=== PATIENT | male | born 1980 | race Caucasian/White ===

== ENCOUNTER → 2018-01-25 12:59 | Outpatient (CLI) | payer OTHER, SELFPAY ==
--- NOTE | 2018-01-25 | DI.RAD.S_ITS ---
PROCEDURE: XR CHEST 2V INDICATIONS: THORACIC CONTUSION, LUMBAR STRAIN, LT RIB FRACTURE TECHNIQUE: 2 views of the chest were acquired. COMPARISON: None. FINDINGS: Surgical changes and devices: None. Lungs and pleura: No pleural effusions or pneumothorax. Lungs are clear. Mediastinum: Mediastinal contours are normal. Heart size is normal. Bones and chest wall: Multiple old left rib fractures are present. Soft tissues appear unremarkable. IMPRESSION: No acute cardiopulmonary disease. Dictated by: Desmond Daniel M.D. on 01/25/2018 at 14:08 Approved by: Desmond Daniel M.D. on 01/25/2018 at 14:09
== END ==
PROVIDERS: Visit Provider Physical Medicine & Rehabilitation
DX: S20.212A Contusion of left front wall of thorax, initial encounter (principal); S39.012A Strain of muscle, fascia and tendon of lower back, initial encounter; S22.42XA Multiple fractures of ribs, left side, initial encounter for closed fracture
CPT/HCPCS: 71046

== ENCOUNTER → 2018-03-14 16:13 | Outpatient (CLI) | payer OTHER, SELFPAY ==
--- NOTE | 2018-03-14 16:16 | DI.MRI.S_ITS ---
PROCEDURE: MR THORACIC SPINE WO CON INDICATIONS: LEFT RIB FRACTURE/CONTUSION THORAX. Thoracic spine pain. Attacked by a cow. TECHNIQUE: Noncontrast sagittal T1 spine echo and T2 fast spin echo, sagittal STIR, axial T1 and T2 fast spin echo through the thoracic spine. COMPARISON: [facility], CR, XR CHEST 2V, 01/25/2018, 12:45. FINDINGS: Image quality: Excellent. Alignment and Curvature: There is normal bony alignment. Bone Marrow: Marrow is of normal overall signal except at T8 where there is a mild vertebral body compression fracture involving the upper endplate, with elevated fluid signal in the marrow space on the T1 and STIR pulse sequence, without retropulsion of bone fragments into the spinal canal. Alignment is normal in this area. There is a 2% height reduction at the middle third of the T8 vertebral body when compared to the vertebral body with normal signal immediately above.. No acute vertebral body compression fractures. Elsewhere there is a small degree of chronic appearing degenerative disc height reduction and disc desiccation noted along the upper and middle thirds of the thoracic spine. Spinal Cord: Visualized spinal cord is normal in size and signal. Paraspinous Soft Tissues: No paravertebral masses. Miscellaneous: On axial images, central canal and foramina appear widely patent at all scanned levels. IMPRESSION: 1. There is evidence of acute or subacute traumatic injury to the middle third of the thoracic spine. This is seen specifically at the T8 vertebral body where marrow edema is present associated with a mild depression of the upper endplate of the T8 vertebral body, without retropulsion of bone fragments after trauma into the spinal canal. This results in a very small degree of vertebral height reduction, a 2% height reduction when compared to the vertebral body immediately below where normal T9 marrow signal is present. 2. Along the thoracic spine there is no disc bulge or herniation. The intervertebral neural foramen show no sign of stenosis after trauma. No nerve root impingement is suspected. No paravertebral edema or hematoma is associated. Dictated by: Lon Jack M.D. on 03/15/2018 at 8:14 Approved by: Lon Jack M.D. on 03/15/2018 at 8:26
== END ==
PROVIDERS: Visit Provider Physical Medicine & Rehabilitation
DX: S29.9XXA Unspecified injury of thorax, initial encounter (principal); M54.6 Pain in thoracic spine; W55.22XA Struck by cow, initial encounter
CPT/HCPCS: 72146

== ENCOUNTER → 2022-07-02 14:36 | Outpatient (CLI) | payer OTHER, MEDICAID, SELFPAY ==
--- NOTE | 2022-07-02 14:38 | DI.RAD.S_ITS ---
PROCEDURE: XR THORACIC SPINE 2V INDICATIONS: thoracic pain TECHNIQUE: 2 views of the thoracic spine were acquired. COMPARISON: [facility] [place], KATIE, XR THORACIC SPINE 2 VIEWS, 05/05/2018, 14:15. FINDINGS: Bones: No fractures or dislocations. No suspicious bony lesions. 12 pairs of ribs are noted, and appear intact where visualized. Multilevel minimal disc space narrowing. Soft tissues: No paravertebral stripe thickening. IMPRESSION: Multilevel minimal disc space narrowing. Dictated by: Elisabeth Baires M.D. on 07/02/2022 at 17:31 Approved by: Elisabeth Baires M.D. on 07/02/2022 at 17:31
== END ==
PROVIDERS: PCP Internal Medicine; Referring Provider Internal Medicine; Visit Provider Internal Medicine
DX: M54.6 Pain in thoracic spine (principal); M45.9 Ankylosing spondylitis of unspecified sites in spine
CPT/HCPCS: 72070

== ENCOUNTER → 2022-11-30 14:58 | Outpatient (CLI) | payer OTHER, MEDICAID, SELFPAY ==
[2022-11-30 15:56] LABS: Hematocrit 39.8 % (41-53); Hemoglobin 13.7 g/dL (13.5-17.5); Mean Corpuscular HGB Conc 34.4 % (30-36); Mean Corpuscular Hemoglobin 31.6 PG (26-34); Mean Corpuscular Volume 91.9 fL (80-100); Platelet Count 282 X10^3/uL (150-400); Red Blood Cell Count 4.33 X10^6/uL (4.5-5.9); Red Cell Distribution Width 13.1 % (11.6-14.8); White Blood Cell Count 6.9 X10^3/uL (4.5-11.0)
[2022-11-30 16:28] LABS: Alanine Aminotransferase 24 IU/L (<50); Alkaline Phosphatase 102 U/L (38-126); Aspartate Aminotransferase 21 IU/L (17-59); BUN Creatinine Ratio 17.9 (6-22); Bilirubin Total 0.4 mg/dL (0.2-1.3); Blood Urea Nitrogen 12 mg/dL (9-20); C-Reactive Protein Quant 0.8 mg/dL (<1.0); Calcium 8.5 mg/dL (8.4-10.2); Carbon Dioxide 26 mmol/L (22-32); Chloride 100 mmol/L (98-107); Estimated Glomerular Filt Rate > 60 mL/min (>60); Glucose 204 mg/dL (70-100); HEMOLYSIS < 15 (0-50); Potassium 3.9 mmol/L (3.4-5.1); Sodium 135 mmol/L (137-145)
[2022-11-30 16:29] LABS: Albumin 4.2 g/dL (3.5-5.0); Albumin Globulin Ratio 1.2 (1.0-2.8); Cholesterol 211 mg/dL (140-199); Globulin 3.4 g/dL (1.7-4.1); HDL Cholesterol 50 mg/dL (40-60); LDL Cholesterol Calculated 141 mg/dL (<100); Total Protein 7.6 g/dL (6.3-8.2); Triglycerides 99 mg/dL (35-150)
[2022-11-30 16:52] LABS: TSH w/ Reflex to FT4 1.75 uIU/mL (0.47-4.68)
[2022-11-30 16:59] LABS: Hepatitis B Surface Antigen NEGATIVE s/c (NEGATIVE)
[2022-11-30 17:22] LABS: HIV 1 & 2 Ab/Ag 4th Gen Combo NEGATIVE (NEGATIVE); Hep C Virus Ab w/Reflex Quant NEGATIVE s/c (NEGATIVE)
[2022-11-30 17:57] LABS: Urine N gonorrhoeae NOT DETECTED
[2022-11-30 18:14] LABS: Urine Chlamydia NOT DETECTED
[2022-11-30 19:04] LABS: Erythrocyte Sedimentation Rate 16 MM/HR (0-15)
[2022-12-02 06:31] LABS: Hepatitis B Surf Ab Qualitativ Non Reactive (.)
== END ==
PROVIDERS: PCP Internal Medicine; Referring Provider Internal Medicine; Visit Provider Internal Medicine
DX: M45.9 Ankylosing spondylitis of unspecified sites in spine (principal); I10 Essential (primary) hypertension; Z00.00 Encounter for general adult medical examination without abnormal findings; Z20.9 Contact with and (suspected) exposure to unspecified communicable disease
CPT/HCPCS: 36415; 80053; 80061; 84443; 85027; 85651; 86140; 86706; 86803; 87340; 87389; 87491; 87591

== ENCOUNTER → 2023-12-29 12:38 | Outpatient (CLI) | payer OTHER, MEDICAID, SELFPAY ==
[2023-12-29 13:41] LABS: Hematocrit 42.3 % (41-53); Hemoglobin 14.3 g/dL (13.5-17.5); Mean Corpuscular HGB Conc 33.9 % (30-36); Mean Corpuscular Hemoglobin 33.8 PG (26-34); Mean Corpuscular Volume 99.6 fL (80-100); Platelet Count 292 X10^3/uL (150-400); Red Blood Cell Count 4.24 X10^6/uL (4.5-5.9); Red Cell Distribution Width 12.3 % (11.6-14.8)
[2023-12-29 13:55] LABS: Erythrocyte Sedimentation Rate 13 MM/HR (0-15)
[2023-12-29 14:50] LABS: C-Reactive Protein Quant 1.2 mg/dL (<1.0)
[2023-12-29 18:14] LABS: Hemoglobin A1C% w Est Avg Glu 8.8 % (4.0-6.0)
== END ==
LOC: LAB 12:39
PROVIDERS: PCP Internal Medicine; Referring Provider Internal Medicine; Visit Provider Internal Medicine
DX: R73.01 Impaired fasting glucose (principal); M45.9 Ankylosing spondylitis of unspecified sites in spine
CPT/HCPCS: 36415; 83036; 85027; 85651; 86140

== ENCOUNTER 2024-03-29 11:27 | Emergency (ER) | payer OTHER, MEDICAID, SELFPAY ==
[2024-03-29] VITALS (9 sets, daily range): BP systolic 174–204; BP diastolic 104–130; PULSE 86–96; RESP 12–24; TEMP 36.6; O2SAT 96–100; BMI 27.3
--- NOTE | 2024-03-29 15:18 | ED.ANXIETY ---
HPI - Anxiety <Clarissa Cisneros PA-C - Last Filed: 03/29/24 19:45> General Chief Complaint: Anxiety Stated Complaint: Panic attack,Anxiety Time Seen by Provider: 03/29/24 15:17 History of Present Illness HPI narrative: Mr. Cali is a 43-year-old male with a past medical history of T2DM, PTSD, HTN, HLD who presents to the emergency department for an acute anxiety attack. Patient reports he is very stressed right now, trying to buy a house, his girlfriend broke up with him, and this morning he developed an anxiety attack. States that he has suffered with anxiety attacks in the past. Reports left upper quadrant abdominal pain over the last ?few weeks? from a history of stomach ulcers. Denies any bloody or black stools. Denies chest pain, shortness of breath, vomiting. Denies taking any anxiety medications or pain medications prior to arrival. Related Data Previous Rx's Medication Instructions Recorded escitalopram oxalate 10 mg tablet 10 mg PO DAILY #90 tabs 05/05/23 cyclobenzaprine 10 mg tablet 10 mg PO BEDTIME PRN muscle spasm 11/11/23 #30 tabs metformin 500 mg tablet 500 mg PO BID #60 tabs 12/30/23 hydrocodone 5 mg-acetaminophen 325 1 tab PO BID PRN pain #60 tabs 02/10/24 mg tablet hydrocodone 5 mg-acetaminophen 325 1 tab PO BID PRN pain #60 tabs 02/10/24 mg tablet hydrocodone 5 mg-acetaminophen 325 1 tab PO BID PRN pain #60 tabs 02/10/24 mg tablet losartan 50 mg tablet 50 mg PO DAILY #90 tabs 02/10/24 meloxicam 15 mg tablet 15 mg PO DAILY #90 tabs 02/10/24 lorazepam 1 mg tablet (Ativan) 1 mg PO BID PRN anxiety #8 tabs 03/29/24 pantoprazole 40 mg granules 40 mg PO DAILY 30 days #30 ea 03/29/24 delayed-release for susp in packet (Protonix) Allergies Allergy/AdvReac Type Severity Reaction Status Date / Time cephalexin Allergy Severe Anaphylaxis Verified 03/29/24 12:44 Review of Systems <Clarissa Cisneros PA-C - Last Filed: 03/29/24 19:45> Review of Systems ROS Unobtainable: All systems reviewed & are unremarkable except as noted in HPI and below Patient History <Clarissa Cisneros PA-C - Last Filed: 03/29/24 19:45> Medical History DM type 2 with diabetic dyslipidemia Low testosterone Acute bacterial sinusitis Chronic, continuous use of opioids Overweight PTSD (post-traumatic stress disorder) (~2016) Fractures Ankle pain (~2009) Irritable bowel syndrome (~2014) Alcohol use disorder Tobacco abuse Generalized anxiety disorder Ankylosing spondylitis (~2016) Essential hypertension (~2021) Surgical History Anesthesia History of surgery on arm History of hand surgery (~2002) Family History Father Cancer Mother Cancer 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 Overweight patient, in no mild distress. HEAD: Atraumatic. Normocephalic. EYES: Extraocular motions intact. No scleral icterus. No injection or drainage. ENT: Nose without bleeding, purulent drainage. Airway patent. NECK: Trachea midline. CARDIOVASCULAR: Tachycardic, regular rhythm. RESPIRATORY: Clear to auscultation. Breath sounds equal bilaterally. No wheezes, rales, or rhonchi. No resp distress. GASTROINTESTINAL: Abdomen soft, nondistended. LUQ tenderness, no rebound or guarding. EXTREMITIES: No edema or joint tenderness. NEURO: AOx3. MENTAL STATUS: Anxious. Engages in conversation appropriately. SKIN: No rash or erythema of visible areas Initial Vital Signs Initial Vital Signs: Vital Signs Temperature 98 F 03/29/24 12:41 Pulse Rate 96 H 03/29/24 12:41 Respiratory Rate 22 03/29/24 12:41 Blood Pressure 204/126 H 03/29/24 12:41 Pulse Oximetry 99 03/29/24 12:41 Oxygen Delivery Method Room Air 03/29/24 12:41 <Calli Hills MD - Last Filed: 04/03/24 07:12> Initial Vital Signs Initial Vital Signs: Vital Signs Temperature 98 F 03/29/24 12:41 Pulse Rate 96 H 03/29/24 12:41 Respiratory Rate 22 03/29/24 12:41 Blood Pressure 204/126 H 03/29/24 12:41 Pulse Oximetry 99 03/29/24 12:41 Oxygen Delivery Method Room Air 03/29/24 12:41 Scores <Clarissa Cisneros PA-C - Last Filed: 03/29/24 19:45> HEART Score Heart Score history: Slightly Suspicious Heart Score EKG: Normal Heart Score Age: < 45 years old Heart Score risk factors: > 3 risk factors or hx of atherosclerotic disease Heart Score troponin: < or = to normal limit Heart Score Total: 2 <Calli Hills MD - Last Filed: 04/03/24 07:12> HEART Score Heart Score Total: 2 Course <Clarissa Cisneros PA-C - Last Filed: 03/29/24 19:45> Orders Ordered: Discontinued Medications Lorazepam (Lorazepam 0.5 Mg Tablet) 1 mg PO NOW ONE Stop: 03/29/24 15:27 Last Admin: 03/29/24 15:49 Dose: 1 mg Documented By: ROBBIE Losartan Potassium (Losartan 50 Mg Tablet) 50 mg PO NOW ONE Stop: 03/29/24 17:53 Last Admin: 03/29/24 18:15 Dose: 50 mg Documented By: OWEN Pantoprazole Sodium (Pantoprazole 40 Mg Vial) 40 mg IV NOW ONE Stop: 03/29/24 17:59 Last Admin: 03/29/24 18:16 Dose: 40 mg Documented By: OWEN Vital Signs Vital signs: Vital Signs - 8 hr 03/29/24 12:41 03/29/24 14:40 03/29/24 15:11 Temperature 98 F Pulse Rate 96 H 96 H 94 H Respiratory Rate 22 24 Blood Pressure 204/126 H 182/104 H 195/111 H Pulse Oximetry 99 99 99 Oxygen Delivery Method Room Air Room Air Room Air 03/29/24 16:05 03/29/24 16:28 03/29/24 17:02 Temperature Pulse Rate 86 89 88 Respiratory Rate 18 20 12 Blood Pressure 176/130 H 186/111 H 174/119 H Pulse Oximetry 96 98 98 Oxygen Delivery Method Room Air Room Air Room Air 03/29/24 18:15 03/29/24 18:20 03/29/24 19:20 Temperature Pulse Rate 86 89 87 Respiratory Rate 18 18 Blood Pressure 181/106 H 181/106 H 181/104 H Pulse Oximetry 98 100 Oxygen Delivery Method Room Air Room Air <Calli Hills MD - Last Filed: 04/03/24 07:12> Orders Ordered: Discontinued Medications Lorazepam (Lorazepam 0.5 Mg Tablet) 1 mg PO NOW ONE Stop: 03/29/24 15:27 Last Admin: 03/29/24 15:49 Dose: 1 mg Documented By: ROBBIE Losartan Potassium (Losartan 50 Mg Tablet) 50 mg PO NOW ONE Stop: 03/29/24 17:53 Last Admin: 03/29/24 18:15 Dose: 50 mg Documented By: OWEN Pantoprazole Sodium (Pantoprazole 40 Mg Vial) 40 mg IV NOW ONE Stop: 03/29/24 17:59 Last Admin: 03/29/24 18:16 Dose: 40 mg Documented By: SB Vital Signs Vital signs: Vital Signs - 8 hr 03/29/24 12:41 03/29/24 14:40 03/29/24 15:11 Temperature 98 F Pulse Rate 96 H 96 H 94 H Respiratory Rate 22 24 Blood Pressure 204/126 H 182/104 H 195/111 H Pulse Oximetry 99 99 99 Oxygen Delivery Method Room Air Room Air Room Air 03/29/24 16:05 03/29/24 16:28 03/29/24 17:02 Temperature Pulse Rate 86 89 88 Respiratory Rate 18 20 12 Blood Pressure 176/130 H 186/111 H 174/119 H Pulse Oximetry 96 98 98 Oxygen Delivery Method Room Air Room Air Room Air 03/29/24 18:15 03/29/24 18:20 03/29/24 19:20 Temperature Pulse Rate 86 89 87 Respiratory Rate 18 18 Blood Pressure 181/106 H 181/106 H 181/104 H Pulse Oximetry 98 100 Oxygen Delivery Method Room Air Room Air MDM - Anxiety <Clarissa Cisneros PA-C - Last Filed: 03/29/24 19:45> Lab Data 03/29/24 15:32 03/29/24 15:32 Labs: Lab Results 03/29/24 03/29/24 Range/Units 15:32 18:29 WBC 7.3 (4.5-11.0) X10^3/uL RBC 4.33 L (4.5-5.9) X10^6/uL Hgb 15.0 (13.5-17.5) g/dL Hct 43.9 (41-53) % MCV 101.4 H (80-100) fL MCH 34.6 H (26-34) PG MCHC 34.1 (30-36) % RDW 13.2 (11.6-14.8) % Plt Count 249 (150-400) X10^3/uL Neut % (Auto) 70.2 (50-75) % Lymph % (Auto) 20.5 L (25-40) % Meade % (Auto) 8.4 (3-14) % Eos % (Auto) 0.3 L (2-4) % Baso % (Auto) 0.6 (0-2) % Neut # (Auto) 5100 (6096-5751) /uL Lymph # (Auto) 1500 (5315-9495) /uL Meade # (Auto) 600 (0-900) /uL Eos # (Auto) 0 (0-450) /uL Baso # (Auto) 0 (0-100) /uL Sodium 138 (137-145) mmol/L Potassium 4.0 (3.4-5.1) mmol/L Chloride 104 (98-107) mmol/L Carbon Dioxide 25 (22-32) mmol/L BUN 8 L (9-20) mg/dL Creatinine 0.69 (0.66-1.25) mg/dL Estimated GFR > 60 (>60) mL/min BUN/Creatinine Ratio 11.6 (6-22) Glucose 135 H (70-100) mg/dL Calcium 9.2 (8.4-10.2) mg/dL Total Bilirubin 0.5 (0.2-1.3) mg/dL AST 93 H (17-59) IU/L ALT 114 H (<50) IU/L Alkaline Phosphatase 71 (38-126) U/L Total Creatine Kinase 61 (55-170) U/L Troponin I < 0.012 < 0.012 (0.01-0.034) ng/mL Total Protein 7.6 (6.3-8.2) g/dL Albumin 4.6 (3.5-5.0) g/dL Globulin 3.0 (1.7-4.1) g/dL Albumin/Globulin Ratio 1.5 (1.0-2.8) Lipase 93 (23-300) U/L Imaging Data Chest x-ray: My Impression: On my independent interpretation of chest x-ray, no large pleural effusion or pneumothorax. Radiologist's Impression: FINDINGS: Surgical changes and devices: None. Lungs and pleura: Lungs are clear. No pleural effusions or pneumothorax. Mediastinum: Mediastinal contours appear normal. Heart size is normal. Bones and chest wall: No suspicious bony lesions. Overlying soft tissues appear unremarkable. IMPRESSION: No acute cardiopulmonary abnormality is seen. ECG Data Interpretation: ECG reviewed by attending physician. [facility] Narrative Medical decision making narrative: 43-year-old male presents to the emergency department for an acute panic attack. He also reports left upper quadrant abdominal pain. Differential diagnosis includes but not limited to anxiety, panic attack, ACS/AK, pancreatitis, gastric ulcer, etc.. On exam patient is in no acute distress however he is anxious and has mild tenderness to palpation of the left upper quadrant. BP elevated in triage. 100% O2 on room air. Reports he has experienced similar anxiety attacks in the past. Given his medical history, will obtain cardiac workup and lipase and treat his anxiety with Ativan. Workup reveals negative chest x-ray. Negative troponin x2. Heart score 2. WBC within normal limits at 7.3. Normal renal function. AST and ALT are elevated at 93 and 114 respectively. Discussed this finding with patient and recommended follow up with PCP for lab monitoring, also recommended decrease alcohol intake and healthy diet. Patient felt much improved after Ativan, Protonix. Patient declined abdominal CT during this ED stay, but I did form him that if he has persistent or worsening abdominal pain he will need to return to the ER. Recommended avoiding NSAIDs given his history of gastric ulcers. He was prescribed Protonix and a short course of Ativan if needed for breakthrough panic attacks until he can see his PCP for further management of his anxiety. Discussed STRICT ER return precautions. BP improved but still elevated, patient asymptomatic. Recommended daily monitoring of blood pressure. Patient verbalized understanding of all information, is agreeable to plan, is stable for discharge. <Calli Hills MD - Last Filed: 04/03/24 07:12> Lab Data Labs: Lab Results 03/29/24 03/29/24 Range/Units 15:32 18:29 WBC 7.3 (4.5-11.0) X10^3/uL RBC 4.33 L (4.5-5.9) X10^6/uL Hgb 15.0 (13.5-17.5) g/dL Hct 43.9 (41-53) % MCV 101.4 H (80-100) fL MCH 34.6 H (26-34) PG MCHC 34.1 (30-36) % RDW 13.2 (11.6-14.8) % Plt Count 249 (150-400) X10^3/uL Neut % (Auto) 70.2 (50-75) % Lymph % (Auto) 20.5 L (25-40) % Meade % (Auto) 8.4 (3-14) % Eos % (Auto) 0.3 L (2-4) % Baso % (Auto) 0.6 (0-2) % Neut # (Auto) 5100 (6438-4871) /uL Lymph # (Auto) 1500 (9745-7574) /uL Meade # (Auto) 600 (0-900) /uL Eos # (Auto) 0 (0-450) /uL Baso # (Auto) 0 (0-100) /uL Sodium 138 (137-145) mmol/L Potassium 4.0 (3.4-5.1) mmol/L Chloride 104 (98-107) mmol/L Carbon Dioxide 25 (22-32) mmol/L BUN 8 L (9-20) mg/dL Creatinine 0.69 (0.66-1.25) mg/dL Estimated GFR > 60 (>60) mL/min BUN/Creatinine Ratio 11.6 (6-22) Glucose 135 H (70-100) mg/dL Calcium 9.2 (8.4-10.2) mg/dL Total Bilirubin 0.5 (0.2-1.3) mg/dL AST 93 H (17-59) IU/L ALT 114 H (<50) IU/L Alkaline Phosphatase 71 (38-126) U/L Total Creatine Kinase 61 (55-170) U/L Troponin I < 0.012 < 0.012 (0.01-0.034) ng/mL Total Protein 7.6 (6.3-8.2) g/dL Albumin 4.6 (3.5-5.0) g/dL Globulin 3.0 (1.7-4.1) g/dL Albumin/Globulin Ratio 1.5 (1.0-2.8) Lipase 93 (23-300) U/L Discharge Plan Departure Patient Disposition: Home Clinical Impression: Anxiety, Elevated blood pressure reading, Transaminitis Instructions: DI for Anxiety -- Adult Activity Restrictions/Additional Instructions: Today you were evaluated in the emergency department for anxiety. I have prescribed you a short course of Ativan if needed for panic attack symptoms. I have also prescribed Protonix for your history of stomach ulcers. Please follow up with a primary care doctor as soon as possible for further evaluation. Please return to the emergency department for any new or worsening symptoms such as worsening abdominal pain, chest pain, shortness of breath or any other concerns. Ativan is a benzodiazepine medication. This medication can cause respiratory depression if not take it appropriately. Do not take this medication with narcotic pain medications or alcohol. Do not drive a car while taking this medication as it may make you drowsy. Prescriptions: New pantoprazole [Protonix] [address] for susp in packet 40 mg PO DAILY 30 Days Qty: 30 0RF lorazepam [Ativan] 1 mg tablet 1 mg PO BID PRN (Reason: anxiety) Qty: 8 0RF No Action metformin 500 mg tablet 500 mg PO BID Qty: 60 5RF hydrocodone-acetaminophen 5-325 mg tablet 1 tab PO BID PRN (Reason: pain) Qty: 60 0RF hydrocodone-acetaminophen 5-325 mg tablet 1 tab PO BID PRN (Reason: pain) Qty: 60 0RF hydrocodone-acetaminophen 5-325 mg tablet 1 tab PO BID PRN (Reason: pain) Qty: 60 0RF losartan 50 mg tablet 50 mg PO DAILY Qty: 90 3RF meloxicam 15 mg tablet 15 mg PO DAILY Qty: 90 3RF escitalopram oxalate 10 mg tablet 10 mg PO DAILY Qty: 90 3RF cyclobenzaprine 10 mg tablet 10 mg PO BEDTIME PRN (Reason: muscle spasm) Qty: 30 5RF Referrals: Porfirio Altamirano MD [Primary Care Provider] - Stand Alone Forms: Patient Portal/API/Survey ED Sign-out <Calli Hills MD - Last Filed: 04/03/24 07:12> Cosign ED Attending Cosignature Attestation: I was immediately available in the department for consultation throughout this patient's visit. Calli Hills MD
--- NOTE | 2024-03-29 15:27 | DI.RAD.S_ITS ---
PROCEDURE: XR CHEST 1V INDICATIONS: chest pain TECHNIQUE: One view of the chest was acquired. COMPARISON: [facility], CR, XR CHEST 2V, 01/25/2018, 12:45. FINDINGS: Surgical changes and devices: None. Lungs and pleura: Lungs are clear. No pleural effusions or pneumothorax. Mediastinum: Mediastinal contours appear normal. Heart size is normal. Bones and chest wall: No suspicious bony lesions. Overlying soft tissues appear unremarkable. IMPRESSION: No acute cardiopulmonary abnormality is seen. Dictated by: Dennis Alaniz M.D. on 03/29/2024 at 16:14 Approved by: Dennis Alaniz M.D. on 03/29/2024 at 16:14
--- NOTE | 2024-03-29 15:40 | EKG_ITS ---
[facility] [address], [place] [address] Test Date: 2024-03-29 Pat Name: Sander Cali Department: [facility] Room: Gender: Male [employer] Agent: SUDHIR : 1980 Requested By: Order Number: [id number] Reading MD: Seth Loza MD Measurements Intervals [place] Rate: 90 P: 48 IN: 138 QRS: 43 QRSD: 94 T: 39 QT: 380 QTc: 464 Interpretive Statements Normal sinus rhythm Electronically Signed On 03-30-2024 8:05:59 PST by Seth Loza MD
[2024-03-29 15:44] LABS: Add Manual Diff / Slide Review NO; Basophils Absolute Auto 0 /uL (0-100); Basophils Percent Auto 0.6 % (0-2); Eosinophils Absolute Auto 0 /uL (0-450); Eosinophils Percent Auto 0.3 % (2-4); Hematocrit 43.9 % (41-53); Lymphocytes Absolute Auto 1500 /uL (1100-4500); Lymphocytes Percent Auto 20.5 % (25-40); Mean Corpuscular HGB Conc 34.1 % (30-36); Mean Corpuscular Hemoglobin 34.6 PG (26-34); Mean Corpuscular Volume 101.4 fL (80-100); Monocytes Absolute Auto 600 /uL (0-900); Monocytes Percent Auto 8.4 % (3-14); Neutrophils Absolute Auto 5100 /uL (1500-7000); Neutrophils Percent Auto 70.2 % (50-75); Platelet Count 249 X10^3/uL (150-400); Red Blood Cell Count 4.33 X10^6/uL (4.5-5.9); Red Cell Distribution Width 13.2 % (11.6-14.8); White Blood Cell Count 7.3 X10^3/uL (4.5-11.0)
[2024-03-29] MEDS: LORazepam 0.5 MG TABLET 1 MG PO (15:49)
[2024-03-29 15:59] LABS: Alanine Aminotransferase 114 IU/L (<50); Albumin 4.6 g/dL (3.5-5.0); Albumin Globulin Ratio 1.5 (1.0-2.8); Alkaline Phosphatase 71 U/L (38-126); Aspartate Aminotransferase 93 IU/L (17-59); BUN Creatinine Ratio 11.6 (6-22); Bilirubin Total 0.5 mg/dL (0.2-1.3); Blood Urea Nitrogen 8 mg/dL (9-20); Calcium 9.2 mg/dL (8.4-10.2); Carbon Dioxide 25 mmol/L (22-32); Chloride 104 mmol/L (98-107); Creatine Kinase 61 U/L (55-170); Estimated Glomerular Filt Rate > 60 mL/min (>60); Glucose 135 mg/dL (70-100); HEMOLYSIS < 15 (0-50); Lipase 93 U/L (23-300); Sodium 138 mmol/L (137-145); Total Protein 7.6 g/dL (6.3-8.2)
[2024-03-29 16:11] LABS: Troponin I < 0.012 ng/mL (0.01-0.034)
[2024-03-29] MEDS: LOSARTAN 50 MG TABLET PO (18:15)
[2024-03-29] MEDS: PANTOPRAZOLE 40 MG VIAL IV (18:16)
[2024-03-29 19:00] LABS: Troponin I < 0.012 ng/mL (0.01-0.034)
== END 2024-03-29 19:18 | disposition home or self-care (01) ==
PROVIDERS: Emergency Provider Physician Assistant; PCP Internal Medicine
DX: F41.9 Anxiety disorder, unspecified (principal); R03.0 Elevated blood-pressure reading, without diagnosis of hypertension; R10.12 Left upper quadrant pain; R74.01 Elevation of levels of liver transaminase levels
CPT/HCPCS: 36415; 71045; 80053; 82550; 83690; 84484; 85025; 93005; 93010; 96374; 99284; J2470

== ENCOUNTER → 2024-05-15 13:04 | Outpatient (CLI) | payer OTHER, SELFPAY ==
[2024-05-15 14:02] LABS: Aspartate Aminotransferase 62 IU/L (17-59); BUN Creatinine Ratio 21.8 (6-22); Blood Urea Nitrogen 17 mg/dL (9-20); Calcium 9.4 mg/dL (8.4-10.2); Carbon Dioxide 29 mmol/L (22-32); Chloride 100 mmol/L (98-107); Estimated Glomerular Filt Rate > 60 mL/min (>60); Glucose 164 mg/dL (70-100); HEMOLYSIS < 15 (0-50); Potassium 4.1 mmol/L (3.4-5.1); Sodium 136 mmol/L (137-145)
[2024-05-15 14:18] LABS: Prolactin 13.8 ng/mL (3.7-17.9)
[2024-05-15 15:23] LABS: Luteinizing Hormone 0.664 mIU/mL
== END ==
PROVIDERS: PCP Internal Medicine; Referring Provider Internal Medicine; Visit Provider Internal Medicine
DX: E11.69 Type 2 diabetes mellitus with other specified complication (principal); E78.5 Hyperlipidemia, unspecified; I10 Essential (primary) hypertension; R79.89 Other specified abnormal findings of blood chemistry; D35.2 Benign neoplasm of pituitary gland
CPT/HCPCS: 80048; 83001; 83002; 83036; 84146; 84403; 84450

== ENCOUNTER → 2024-11-28 15:32 | Outpatient (CLI) | payer OTHER, SELFPAY ==
[2024-11-28 17:34] LABS: Hematocrit 44.4 % (41-53); Hemoglobin 15.1 g/dL (13.5-17.5); Mean Corpuscular HGB Conc 34.1 % (30-36); Mean Corpuscular Hemoglobin 35.0 PG (26-34); Mean Corpuscular Volume 102.6 fL (80-100); Platelet Count 221 X10^3/uL (150-400)
[2024-11-28 17:41] LABS: Hemoglobin A1C% w Est Avg Glu 5.7 % (4.0-6.0)
[2024-11-28 17:55] LABS: Alanine Aminotransferase 44 IU/L (<50); Albumin 4.4 g/dL (3.5-5.0); Albumin Globulin Ratio 1.5 (1.0-2.8); Alkaline Phosphatase 72 U/L (38-126); Blood Urea Nitrogen 9 mg/dL (9-20); Calcium 9.5 mg/dL (8.4-10.2); Carbon Dioxide 27 mmol/L (22-32); Chloride 101 mmol/L (98-107); Estimated Glomerular Filt Rate > 60 mL/min (>60); Globulin 3.0 g/dL (1.7-4.1); Glucose 118 mg/dL (70-99); HEMOLYSIS < 15 (0-50); Potassium 3.7 mmol/L (3.4-5.1); Sodium 137 mmol/L (137-145); Total Protein 7.4 g/dL (6.3-8.2)
[2024-11-28 18:26] LABS: TSH w/ Reflex to FT4 2.72 uIU/mL (0.47-4.68)
== END ==
PROVIDERS: PCP Internal Medicine; Referring Provider Internal Medicine; Visit Provider Internal Medicine
DX: E11.69 Type 2 diabetes mellitus with other specified complication (principal); E78.5 Hyperlipidemia, unspecified; I10 Essential (primary) hypertension; R79.89 Other specified abnormal findings of blood chemistry
CPT/HCPCS: 36415; 80053; 83036; 84403; 84443; 85027